=== PATIENT | female | born 1985 | race American Indian/Alaskan Native ===

== ENCOUNTER 2018-08-17 13:53 | Emergency (ER) | payer MEDICAID, OTHER ==
[2018-08-17 14:25] VITALS: BP 139/77
--- NOTE | 2018-08-17 14:25 | Emergency Department Report ---
Chief Complaint: Abdominal Pain Stated Complaint: /CRAMPING Time Seen by Provider: 08/17/18 14:23 - HPI History of Present Illness: co severe suprapubic pain no bleeding no vag discharge no fever no chills no dysuria lmp normal 12.18 spotted 06/01 stillborn2 mis4 cig until 02/28 etoh stopped 07/02 rx motrin prn psh appy ankle mse completed MSE screening note: Focused history and physical exam performed. Due to findings the following was ordered: ED Disposition for MSE Condition: Stable Instructions: Abdominal Pain (ED)
[2018-08-17] MEDS ORDERED: TYLENOL PO ONE (14:26)
[2018-08-17 15:03] LABS: Bilirubin,Urine NEG (Negative); Blood,Urine NEG (Negative); Color,Urine Yellow (Yellow); Hyaline Casts,Urine 1 /LPF; Mucus,Urine 1+ /HPF; Protein,Urine <15 mg/dL mg/dL (Negative); Urobilinogen,Urine < 2.0 mg/dL (<2.0)
[2018-08-17 15:18] LABS: Basophils # (Auto) 0.1 K/mm3 (0.0-0.1); Basophils % (Auto) 0.7 % (0.0-1.8); Eosinophils # (Auto) 0.1 K/mm3 (0.0-0.4); Eosinophils % (Auto) 0.7 % (0.0-4.3); Hematocrit 42.4 % (30.3-42.9); Hemoglobin 13.9 gm/dl (10.1-14.3); Lymphocytes # (Auto) 1.8 K/mm3 (1.2-5.4); Lymphocytes % (Auto) 19.4 % (13.4-35.0); Mean Corpuscular HGB Conc 33 % (30-34); Mean Corpuscular Volume 79 fl (79-97); Monocytes # (Auto) 0.7 K/mm3 (0.0-0.8); Monocytes % (Auto) 7.9 % (0.0-7.3); Platelet Count 255 K/mm3 (140-440); Red Blood Count 5.36 M/mm3 (3.65-5.03)
[2018-08-17 15:47] LABS: Alanine Aminotransferase 12 units/L (7-56); Albumin 3.9 g/dL (3.9-5); BUN/Creatinine Ratio 7; Blood Urea Nitrogen 4 mg/dL (7-17); Calcium 9.5 mg/dL (8.4-10.2); Hemolysis Index 0
[2018-08-17 15:50] LABS: Bilirubin,Direct < 0.2 mg/dL (0-0.2)
--- NOTE | 2018-08-17 16:39 | Ultrasound Report ---
PROCEDURE: US OB TRANSVAGINAL TECHNIQUE: Ultrasound obstetrical transvaginal HISTORY: pain COMPARISONS: FINDINGS: Uterus is enlarged measuring 13.1 x 9 x 14.3 cm. Multiple echogenic foci are seen within the myometri um consistent with uterine fibroids There is an intrauterine gestational sac present. There is an echogenic structure likely reflecting a pole measuring 0.6 cm by crown-rump length corresponding to estimated gestational age 6 weeks 3 days. No cardiac activity is observed. There is no yolk sac identified. Right ovary 1.7 x 1.2 x 2.4 cm Left ovary is 3.0 x 1.9 x 3.1 cm. No adnexal mass identified. No free fluid identified. IMPRESSION: There is gestational sac within the uterus with probable pole. No cardiac activity observed at this time. May reflect demise versus very early IUP. Close interval follow-up recommended. Enlarged multi fibroid uterus. This document is electronically signed by William Bradford MD., August 17 2018 04:37:01 PM ET
--- NOTE | 2018-08-17 16:42 | Ultrasound Report ---
PROCEDURE: US OB <= 14 WEEKS FETUS TECHNIQUE: Ultrasound obstetrical transabdominal HISTORY: pain COMPARISONS: FINDINGS: Uterus is enlarged measuring 13.1 x 9 x 14.3 cm. Multiple echogenic foci are seen within the myometri um consistent with uterine fibroids There is an intrauterine gestational sac present. There is an echogenic structure likely reflecting a pole measuring 0.6 cm by crown-rump length corresponding to estimated gestational age 6 weeks 3 days. No cardiac activity is observed. There is no yolk sac identified. Right ovary 1.7 x 1.2 x 2.4 cm Left ovary is 3.0 x 1.9 x 3.1 cm. No adnexal mass identified. No free fluid identified. IMPRESSION: There is gestational sac within the uterus with probable pole. No cardiac activity observed at this time. May reflect demise versus very early IUP. Close interval follow-up recommended. Enlarged multi fibroid uterus. . This document is electronically signed by William Bradford MD., August 17 2018 04:39:58 PM ET
--- NOTE | 2018-08-17 16:58 | Emergency Department Report ---
HPI - General Chief Complaint: Abdominal Pain Time Seen by Provider: 08/17/18 14:23 - [facility] HPI: [place] 25 The patient's 33-year-old female presenting with a chief complaint of crampy lower abdominal pain. The patient states she is but has not yet seen an [facility] for this . Patient states last night she developed suprapubic cramping intermittently worsened this morning. Patient denies vaginal bleeding. Patient is to nausea but denies vomiting. Patient denies any recent trauma. Patient denies history of fever Location: Abdomen Duration: Intermittent Since last night Quality: Cramping Severity: Moderate Modifying factors: [see above] Context: [see above] Mode of transportation: [not driving] ED Past Medical Hx - Past Medical History Previous Medical History?: Yes Additional medical history: antiphospholipid syndrome - Surgical History Past Surgical History?: Yes Hx Appendectomy: Yes Additional Surgical History: hernia,foot - Family History Family history: no significant - Social History Smoking Status: Never Smoker Substance Use Type: None ED Review of Systems ROS: Stated complaint: /CRAMPING Other details as noted in HPI Constitutional: denies: fever Eyes: denies: eye pain ENT: denies: throat pain Respiratory: no symptoms reported Cardiovascular: denies: chest pain Endocrine: no symptoms reported Gastrointestinal: abdominal pain, nausea. denies: vomiting Genitourinary: denies: abnormal menses Musculoskeletal: denies: back pain Neurological: denies: headache Physical Exam - Physical Exam Vital Signs: Vital Signs 08/17/18 14:22 Temperature 97.9 F Pulse Rate 108 H Respiratory 18 Rate Blood Pressure 139/77 O2 Sat by Pulse 100 Oximetry Physical Exam: GENERAL: The patient is well-developed well-nourished female lying on stretcher not appearing to be in acute distress. [] HEENT: Normocephalic. Atraumatic. Extraocular motions are intact. Patient has moist mucous membranes. NECK: Supple. Trachea midline CHEST/LUNGS: Clear to auscultation. There is no respiratory distress noted. HEART/CARDIOVASCULAR: Regular. There is no tachycardia. There is no gallop rub or murmur. ABDOMEN: Abdomen is soft, with discomfort to palpation in the right pelvis. Patient has normal bowel sounds. There is no abdominal distention. SKIN: There is no rash. There is no edema. There is no diaphoresis. NEURO: The patient is awake, alert, and oriented. The patient is cooperative. The patient has normal speech MUSCULOSKELETAL: There is no evidence of acute injury. ED Course Vital Signs 08/17/18 14:22 Temperature 97.9 F Pulse Rate 108 H Respiratory 18 Rate Blood Pressure 139/77 O2 Sat by Pulse 100 Oximetry ED Medical Decision Making - Lab Data Result diagrams: 08/17/18 14:47 08/17/18 14:47 Laboratory Tests 08/17/18 08/17/18 08/17/18 14:47 14:47 14:47 WBC 9.3 RBC 5.36 H Hgb 13.9 Hct 42.4 MCV 79 MCH 26 L MCHC 33 RDW 17.0 H Plt Count 255 Lymph % (Auto) 19.4 Rush % (Auto) 7.9 H Eos % (Auto) 0.7 Baso % (Auto) 0.7 Lymph # 1.8 Rush # 0.7 Eos # 0.1 Baso # 0.1 Seg Neutrophils % 71.3 H Seg Neutrophils # 6.6 Sodium 138 Potassium 4.4 Chloride 102.2 Carbon Dioxide 23 Anion Gap 17 BUN 4 L Creatinine 0.6 L Estimated GFR > 60 BUN/Creatinine Ratio 7 Glucose 113 H Calcium 9.5 Total Bilirubin 0.20 Direct Bilirubin < 0.2 Indirect Bilirubin 0.0 AST 16 ALT 12 Alkaline Phosphatase 68 Total Protein 7.7 Albumin 3.9 Albumin/Globulin Ratio 1.0 HCG, Qual Positive HCG, Quant Urine Color Urine Turbidity Urine pH Ur Specific [place] Urine Protein Urine Glucose (UA) Urine Ketones Urine Blood Urine Nitrite Urine Bilirubin Urine Urobilinogen Ur Leukocyte Esterase Urine WBC (Auto) Urine RBC (Auto) U Epithel Cells (Auto) Hyaline Casts Urine Mucus Blood Type Antibody Screen 08/17/18 08/17/18 08/17/18 14:47 14:48 15:30 WBC RBC Hgb Hct MCV MCH MCHC RDW Plt Count Lymph % (Auto) Rush % (Auto) Eos % (Auto) Baso % (Auto) Lymph # Rush # Eos # Baso # Seg Neutrophils % Seg Neutrophils # Sodium Potassium Chloride Carbon Dioxide Anion Gap BUN Creatinine Estimated GFR BUN/Creatinine Ratio Glucose Calcium Total Bilirubin Direct Bilirubin Indirect Bilirubin AST ALT Alkaline Phosphatase Total Protein Albumin Albumin/Globulin Ratio HCG, Qual HCG, Quant 41216 H Urine Color Yellow Urine Turbidity Clear Urine pH 6.0 Ur Specific [place] 1.013 Urine Protein <15 mg/dl Urine Glucose (UA) Neg Urine Ketones Neg Urine Blood Neg Urine Nitrite Neg Urine Bilirubin Neg Urine Urobilinogen < 2.0 Ur Leukocyte Esterase Neg Urine WBC (Auto) 1.0 Urine RBC (Auto) 1.0 U Epithel Cells (Auto) 4.0 Hyaline Casts 1 Urine Mucus 1+ Blood Type O POSITIVE Antibody Screen Negative - Radiology Data Radiology results: report reviewed (pelvic ultrasound), image reviewed (pelvic ultrasound) [facility] [address] [place] [address] Ultrasound Report Signed Patient: CHINMAY PITTS MR#: [id number] : 1985 Acct:[id number] Age/Sex: 33 / F ADM Date: 08/17/18 Loc: ED Attending Dr: Ordering Physician: THANH KWAN Date of Service: 08/17/18 Procedure(s): US OB transvaginal Accession Number(s): [id number] cc: THANH KWAN PROCEDURE: US OB TRANSVAGINAL TECHNIQUE: Ultrasound obstetrical transvaginal HISTORY: pain COMPARISONS: FINDINGS: Uterus is enlarged measuring 13.1 x 9 x 14.3 cm. Multiple echogenic foci are seen within the myometrium consistent with uterine fibroids There is an intrauterine gestational sac present. There is an echogenic structure likely reflecting a pole measuring 0.6 cm by crown-rump length corresponding to estimated gestational age 6 weeks 3 days. No cardiac activity is observed. There is no yolk sac identified. Right ovary 1.7 x 1.2 x 2.4 cm Left ovary is 3.0 x 1.9 x 3.1 cm. No adnexal mass identified. No free fluid identified. IMPRESSION: There is gestational sac within the uterus with probable pole. No cardiac activity observed at this time. May reflect demise versus very early IUP. Close interval follow-up recommended. Enlarged multi fibroid uterus. This document is electronically signed by William Lantigua MD., August 17 2018 04:37:01 PM ET Transcribed By: FLOR Dictated By: MANSOOR LANTIGUA MD Electronically Authenticated By: MANSOOR LANTIGUA MD Signed Date/Time: 08/17/18 1639 DD/ [id number] TD/TT: 08/17/18 1630 - Differential Diagnosis miscarriage, demise, threatened Critical care attestation.: If time is entered above; I have spent that time in minutes in the direct care of this critically ill patient, excluding procedure time. ED Disposition Clinical Impression: Threatened , Disposition: DC- TO HOME OR SELFCARE Is pt being admited?: No Does the pt Need Aspirin: No Condition: Stable Instructions: Abdominal Pain (ED), (ED) Additional Instructions: Return to the emergency department immediately should you develop worsening symptoms, fever, inability to tolerate food or liquid or any other concerns. Referrals: PRIMARY CARE,MD [Primary Care Provider] - 3-5 Days ARLINE NAM MD [Staff Physician] - 2-3 Days (Dr. Nam is an [facility]. Please follow up with her promptly for reevaluation) Time of Disposition: 16:59
== END 2018-08-17 17:20 | disposition home or self-care (01) ==
LOC: ED 13:53
DX: O20.0 Threatened abortion (principal); Z90.89 Acquired absence of other organs; Z88.1 Allergy status to other antibiotic agents; Z91.041 Radiographic dye allergy status; Z3A.01 Less than 8 weeks gestation of pregnancy
CPT/HCPCS: 36415; 76801; 76817; 80048; 80076; 81001; 84702; 84703; 85025; 86850; 86900; 86901